=== PATIENT | female | born 1960 | race Caucasian/White ===

== ENCOUNTER 2023-05-05 09:59 | Day surgery (SDC) | payer OTHER, SELFPAY ==
[2023-05-05] MEDS: LACTATED RINGERS 1,000 ML 100 ML IV (10:11)
[2023-05-05 10:22] VITALS: BP 161/88; PULSE 93; RESP 16; TEMP 36.2; O2SAT 99
--- NOTE | 2023-05-05 10:30 | PM.HP.1 ---
History of Present Illness History of Present Illness Date Patient Seen: 05/05/23 Time Patient Seen: 10:30 Chief complaint: Colonoscopy Narrative: Shoshana is a 62-year-old woman who is here for colonoscopy. Her last colonoscopy was over 10 years ago. No family history of colon cancer. She is otherwise healthy. Meds Home Medications and Allergies Home Medications Medication Instructions Recorded Confirmed Type lisinopril 40 mg tablet 40 mg PO DAILY 05/05/23 05/05/23 History rosuvastatin 10 mg tablet 10 mg PO ONCE PM 05/05/23 05/05/23 History Allergies Allergy/AdvReac Type Severity Reaction Status Date / Time No Known Drug Allergies Allergy Verified 05/05/23 10:18 Exam Const General: healthy appearing Assessment & Plan Assessment and plan (1) Colon cancer screening: Status: Acute Plan Shoshana is a 62-year-old woman of average risk for colon cancer who is here for a screening colonoscopy. We reviewed the risks and benefits and she would like to proceed.
[2023-05-05 11:02] VITALS: BP 115/59; PULSE 60; RESP 12; TEMP 36.2; O2SAT 99
[2023-05-05 11:06] VITALS: BP 127/74; PULSE 54; RESP 12; O2SAT 100
--- NOTE | 2023-05-05 11:07 | PM.OP.COLON ---
Operative Date/Time/Diagnoses Date of procedure: 05/05/23 Time of procedure: 11:07 Pre-op diagnosis: Colon cancer screening Post-op diagnosis: same Procedure & Clinicians Study performed: Colonoscopy Same procedure as scheduled: Yes Surgeon: Hi Ko Procedure Notes Procedure in detail: Surgeon: Hi Ko MD Anesthesia: Jani Klein D.O. Procedure: The patient was brought to the endoscopy suite, placed in left lateral decubitus position. The patient was connected to monitoring devices. A time-out was performed. Sedation was administered. Once the patient was adequately sedated, a digital rectal exam was performed and was normal. The scope was then inserted and advanced to the cecum where the appendiceal orifice was identified and photographed. The scope was then slowly withdrawn over greater than 6 minutes. The mucosa was thoroughly inspected. No abnormalities were found. The scope was retroflexed in the rectum. Internal hemorrhoids were noted. The scope was straightened and removed. The patient was awakened and brought to recovery. Scope withdrawal time: 7 minutes Sedation time: 13 minutes EBL: 0 Findings: Internal hemorrhoids Post-procedure Recommendations: Colonoscopy in 10 years Disposition: PACU
[2023-05-05 11:11] VITALS: BP 139/74; PULSE 51; RESP 14; TEMP 36.7; O2SAT 100
[2023-05-05 11:14] VITALS: BP 149/79; PULSE 50; RESP 16; O2SAT 100
== END 2023-05-05 11:30 | disposition home or self-care (01) ==
PROVIDERS: Surgery; PCP Nurse Practitioner; Referring Provider Surgery; Visit Provider Surgery
PROC: 0DJD8ZZ Inspection of Lower Intestinal Tract, Via Natural or Artificial Opening Endoscopic (ICD-10-PCS; CPT 45378; principal; 2023-05-05 11:00)
DX: K64.8 Other hemorrhoids (principal)
CPT/HCPCS: 45378; J2704